=== PATIENT | female | born 1950 | race Hispanic/Latino ===

== ENCOUNTER 2021-11-21 06:03 | Observation (INO) | payer MEDICARE ==
[2021-11-19 14:03] LABS: BASOPHILS % (AUTO) 0.5 % (0.0-5.0); HEMATOCRIT 45.5 % (36-48); LYMPHOCYTES % (AUTO) 42.1 % (21.0-51.0); MEAN CORPUSCULAR HEMOGLOBIN 30.3 pg (27.0-33.0); MEAN CORPUSCULAR VOLUME 91.9 fL (79-99); MONOCYTES % (AUTO) 9.1 % (3.0-13.0); NEUTROPHILS % (AUTO) 45.2 % (40.0-77.0); PLATELET COUNT (AUTO) 242 K/uL (130-400); RED BLOOD CELL COUNT(AUTO) 4.95 MIL/uL (4.00-5.50); RED CELL DISTRIBUTION WIDTH 13.2 % (11.0-15.5); WHITE BLOOD COUNT (AUTO) 7.4 K/uL (4.8-10.8)
[2021-11-19 14:11] LABS: CREATININE 0.8 mg/dL (0.5-1.5); POTASSIUM 4.6 mmol/L (3.5-5.1)
[2021-11-19 14:12] LABS: APPEARANCE,URINE Clear (CLEAR); BILIRUBIN,URINE Negative (NEGATIVE); COLOR,URINE Yellow (YELLOW); GLUCOSE, URINE (UA) Negative (NEGATIVE); KETONES,URINE Trace mg/dL (NEGATIVE); LEUKOCYTE ESTERASE ,URINE Small (NEGATIVE); NITRATE,URINE Negative (NEGATIVE); OCCULT BLOOD,URINE Small (NEGATIVE); PH,URINE 6.5 (5.0-8.0); PROTEIN,URINE Negative (NEGATIVE)
[2021-11-19 14:19] LABS: INR 1.02 (0.85-1.15); PROTHROMBIN TIME 11.1 SEC (9.6-11.6)
[2021-11-19 14:20] LABS: PARTIAL THROMBOPLASTIN TIME 27.9 SEC (26.3-35.5)
[2021-11-19 14:37] LABS: B-TYPE NATRIURETIC PEPTIDE 162 pg/mL (0-100)
[2021-11-19 14:42] LABS: BACTERIA,URINE Rare /HPF (None Seen); MUCUS,URINE Rare LPF (None Seen); RBC,URINE 0-1 /HPF (0-1); SQUAMOUS EPITHELIAL CELL,UR Rare /HPF (0-2); WBC,URINE 0-1 /HPF (0-1)
[2021-11-21] VITALS (11 sets, daily range): BP systolic 91–128; BP diastolic 54–74
[~2021-11-21] VITALS: Ht 167.6 cm; Wt 94.4 kg
[~2021-11-21 06:03] MED LIST: ACET-66 PO; ASPI-1443 PO; ATOR20TA65 PO; ISOS30TA92 PO; METO25TA6 PO; NITR0.4T50 SL; PROP150T28 PO
[2021-11-21] MEDS ORDERED: 0.9%NACL 1000ML 1,000 ML IV ONE (06:58)
[2021-11-21] MEDS ORDERED: BIVALIRUDIN 250 MG/VIAL IV ONE (07:08)
[2021-11-21] MEDS ORDERED: HEPARIN 10,000 UNIT/10ML (1,000 UNIT/ML) VIAL ONE ×2 (07:08→07:40)
[2021-11-21] MEDS ORDERED: IOHEXOL-350 50ML VIAL IV ONE (07:09)
[2021-11-21] MEDS ORDERED: IOHEXOL 350 MG/ML 100ML INFUS..BTL IV ONE (07:09)
[2021-11-21] MEDS ORDERED: LIDOCAINE HCL 400MG/20ML VIAL ONE (07:10)
[2021-11-21] MEDS ORDERED: ASPIRIN 81MG CHEW TAB ONE (08:45)
[2021-11-21] MEDS ORDERED: CLOPIDOGREL 300MG TAB ONE (08:45)
[2021-11-21] MEDS ORDERED: ACETAMINOPHEN 500 MG TABLET PO PRN (09:00)
[2021-11-21] MEDS ORDERED: MEPERIDINE-PF 25 MG/ML SYG IVP SCH ×2 (09:00→14:30)
[2021-11-21] MEDS: ATORVASTATIN 20 MG TABLET PO SCH ×2 (09:00→21:13)
[2021-11-21] MEDS: ISOSORBIDE MONO 30MG SR TAB PO SCH ×2 (09:00→21:12)
[2021-11-21] MEDS: PROPAFENONE HCL 150 MG TABLET PO SCH ×2 (09:00→21:13)
[2021-11-21] MEDS: METOPROLOL TARTRATE 25 MG TAB PO SCH ×2 (09:00→21:12)
[2021-11-21] MEDS ORDERED: ONDANSETRON 4MG INJ IVP SCH ×2 (09:00→14:30)
[2021-11-21] MEDS ORDERED: NITROGLYCERIN 0.4 MG SL TAB SL SCH (09:00)
[2021-11-21] MEDS ORDERED: LACTULOSE 20 GM/30 ML UDCUP PO PRN (11:00)
[2021-11-21] MEDS ORDERED: HYDRALAZINE 20MG/ML VIAL IV PRN (11:00)
[2021-11-21] MEDS ORDERED: ALBUTEROL 0.083% 2.5 MG/3 ML INH IH PRN (11:00)
[2021-11-21] MEDS: INSULIN HUMULIN R 100 UNIT/ML 3ML SQ SCH ×3 (11:30→20:20)
[2021-11-21 13:19] LABS: INR 1.07 (0.85-1.15); PROTHROMBIN TIME 11.6 SEC (9.6-11.6)
[2021-11-21 13:20] LABS: PARTIAL THROMBOPLASTIN TIME 50.4 SEC (26.3-35.5)
[2021-11-21] MEDS ORDERED: ASPIRIN 81 MG EC TAB PO SCH (21:00)
[2021-11-21] MEDS ORDERED: HYDROMORPHONE 0.5 MG SYG (0.5MG/0.5ML) IVP SCH (21:00)
[2021-11-22 00:04] VITALS: BP 92/49
[2021-11-22 04:04] VITALS: BP 94/56
[2021-11-22 04:06] LABS: HEMATOCRIT 42.7 % (36-48); MEAN CORPUSCULAR HEMOGLOBIN 29.5 pg (27.0-33.0); MEAN CORPUSCULAR HGB CONC 32.8 g/dL (32.0-36.0); MEAN CORPUSCULAR VOLUME 89.9 fL (79-99); RED BLOOD CELL COUNT(AUTO) 4.75 MIL/uL (4.00-5.50); RED CELL DISTRIBUTION WIDTH 13.2 % (11.0-15.5); WHITE BLOOD COUNT (AUTO) 7.4 K/uL (4.8-10.8)
[2021-11-22 04:22] LABS: MAGNESIUM 2.1 mg/dL (1.80-2.40); PHOSPHORUS 4.2 mg/dL (2.5-4.9); POTASSIUM 4.3 mmol/L (3.5-5.1)
[2021-11-22] MEDS: INSULIN HUMULIN R 100 UNIT/ML 3ML SQ SCH ×2 (07:30→11:23)
[2021-11-22 07:32] VITALS: BP 93/56
[2021-11-22] MEDS ORDERED: CLOPIDOGREL 75MG TAB PO SCH (09:00)
[2021-11-22] MEDS ORDERED: PANTOPRAZOLE 40 MG TAB DR PO SCH (09:00)
[2021-11-22] MEDS ORDERED: METOPROLOL TARTRATE 25 MG TAB PO SCH (09:00)
[2021-11-22] MEDS: PROPAFENONE HCL 150 MG TABLET PO SCH (09:19)
[2021-11-22] MEDS: ATORVASTATIN 20 MG TABLET PO SCH (09:19)
[2021-11-22 11:13] VITALS: BP 108/58
== END 2021-11-22 13:00 | disposition home or self-care (01) ==
LOC: DAH 06:03 → DAHIP 06:04 → DAH 06:04 → 2DH 09:47
PROVIDERS: ADMIT Internal Medicine Pulmonary Disease; ATTEND Internal Medicine Pulmonary Disease
DX: I25.119 Atherosclerotic heart disease of native coronary artery with unspecified angina pectoris (principal); I10 Essential (primary) hypertension; R79.89 Other specified abnormal findings of blood chemistry; E78.00 Pure hypercholesterolemia, unspecified; E78.5 Hyperlipidemia, unspecified; Z79.82 Long term (current) use of aspirin; Z79.01 Long term (current) use of anticoagulants
CPT/HCPCS: 36415 ×3; 71045; 80048 ×2; 80061; 81001; 82948 ×5; 83735; 83880; 84100; 85025; 85027; 85347 ×2; 85610 ×2; 85730 ×3; 93005; 93458; 93799; 96374; 96375; A4215; A4216; A4221; A4222; A4223 ×3; A4606; A4663; C1725 ×3; C1761; C1769; C1874; C1887; C1894; C9600; G0378 ×26; J1170; J1644 ×3; J2175; J2405; J3490; J7030 ×2; Q9965 ×2; Q9967 ×2; J0583